=== PATIENT | female | born 1980 | race Caucasian/White ===

== ENCOUNTER 2017-05-17 18:29 | Emergency (ER) | payer MEDICAID ==
[~2017-05-17] VITALS: Ht 160 cm; Wt 93.0 kg
[~2017-05-17 18:29] MED LIST: ASPIRIN 81MG TA81 MG PO; CARVEDILOL6.25 MG PO; COREG 6.25MG6.25 MG PO; ETODOLAC400 MG PO; FIORICET 325 MG1 TAB PO; FLEXERIL10 MG PO; FUROSEMIDE 20MG20 MG FT; GABAPENTIN300 MG PO; HYDROCHLOROTH12.5 M1 PO; IBU-8800 MG PO; KLOR-CON M2020 MEQ PO; LEVOTHYROXINE0.05 M3 NG; LIPITOR20 MG PO; LIPITOR80 M1 PO; LORTAB 5/500 501 TAB PO; MOTRIN600 MG PO; NEURONTIN600 MG PO; NORCO 325 MG-101 TAB PO; PAXIL20 M1 PO; PRILOSEC20 M1 PO; PRILOSEC40 MG PO; SYNTHROID 0.00.05 MG PO; ZANTAC 150150 MG PO
--- NOTE | 2017-05-17 18:49 | Emergency Room Report ---
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 N Clinical Suspician of Infection? N Mental Status: 1 - Regular (Normal Baseline) Sepsis Risk:Low Sepsis Risk Have you (or family members/close friends) recently traveled outside the [place]? N If Yes, where/when: Have you had exposure to infectious disease within the past month? TB? Other? Specify: Comment Patient complains of RIGHT upper quadrant pain that began yesterday. Pain radiates around her RIGHT side. It is been constant. She has felt flushed and chilled, but no documented fevers at home. She did see her PCP today and was told she had a temperature of 99.6. She says that she has been having gallbladder attacks for 2 years. She has been evaluated previously and was told that she did not have stones. She has never had an attack that lasted this long. She has nausea, but no vomiting. No diarrhea. No urinary symptoms. She took ibuprofen about 1 PM. Her physician's appointment was at 4:45 PM. She says that her primary care provider told her today that she had a positive [place] sign and that she needed to come to the emergency room because she might need IV antibiotics. The patient was seen here in October, 10/15/16, for RIGHT upper quadrant pain and had a CT scan that showed a contracted gallbladder. Outpatient gallbladder ultrasound was recommended. She says that she saw her primary care provider the next day and was told that they would schedule this test, but she says she never got a call about it and therefore has never had it done. ALLERGIES Coded Allergies: penicillin G (Mild, 05/17/17) Uncoded Allergies: DOXCYCLINE (I-ITCHING 11/22/15) Home Medications Active Scripts Gabapentin (Neurontin) 600 MG PO QHS #30 TAB Ref 2 Prov: 11/22/15 Hydrochlorothiazide (Hydrochlorothiazide 12.5MG) 12.5 MG PO DAILY #30 CAP Ref 1 Prov: 11/22/15 ATORVASTATIN CALCIUM (Lipitor 80MG) 80 MG PO QHS #30 TAB Ref 1 Prov: 11/22/15 LEVOTHYROXINE SOD (Levothyroxine 0.05MG) 0.05 MG NG DAILY #30 TAB Ref 1 Prov: 11/22/15 Carvedilol (Coreg 6.25MG) 6.25 MG PO BID #60 TAB Ref 1 Prov: 11/22/15 Ranitidine Hcl (Zantac) 150 MG PO BID #60 TAB Ref 1 Prov: 11/22/15 OMEPRAZOLE MAGNESIUM (Prilosec 20MG) 20 MG PO DAILY #30 TCP Ref 1 Prov: 11/22/15 Reported Medications Levothyroxine Sodium (Synthroid 0.05MG) 0.05 MG PO DAILY Carvedilol (Carvedilol 6.25MG) 6.25 MG PO BID Atorvastatin Calcium (Lipitor 20MG) 80 MG PO DAILY Furosemide (Furosemide) 20 MG FT DAILY ASPIRIN (Aspirin) 81 MG PO DAILY Omeprazole (Prilosec 40mg Cap) 40 MG PO DAILY Hydrochlorothiazide (Hydrochlorothiazide 12.5MG) 12.5 MG PO DAILY PAROXETINE HCL (Paxil) 20 MG PO QHS HYDROCODONE/ACETAMINOPHEN ([place] 10-325 Tablet) 1 TAB PO Q4HP PRN BACK Gabapentin (Gabapentin 300MG) 600 MG PO QHS Ranitidine Hcl (Zantac) 150 MG PO BID History Medical History General CAD? No Angina: No CO: Yes Hypertension? Yes Hyperlipidemia? Yes CHF? No DVT? No PE? No COPD? No Asthma? No Anemia? No GERD? No Gastric ulcers? No GI Bleed? No Hernia? No Thyroid Problems? No Hypothyroidism? Yes CVA? No Seizures? No Diabetes? No Renal Insuffiency? No End Stage Renal Disease? No UTI? No Stones? No BPH? No GB Disease: Yes Nephritic Syndrome? No Asplenia? No Hepatitis? No Sickle Cell Disease? No Arthritis? No Migraines? Yes Cataracts? No Glaucoma? No MRSA? No HIV? No TB? No Anxiety? No Depression? No Cancer? No More? No Immunization Hx Ped.Immunizations UTD Yes DT/Tetanus 5-10 YRS Flu NEVER Pneumonia NEVER Surgical Hx Previous Surgery?Y Tonsils TUBAL LEFT BREAST BIOPSY LEFT KNEE [employer] Hx LMP N/A Family History Family Hx Diabetes Yes CAD Yes Hypertension Yes Hyperlipidemia Yes Cancer Yes TB No Social History Smoking Hx Smoker: Current Every Day Smoker Tobacco: Yes Type Cigarettes Packs/day < 1 Pack Alcohol Alcohol: No Additionial History Additional History Negative gallbladder ultrasound and HIDA scan in 2011 at this facility. Review of Systems All Other Systems Reviewed and Negative Constitutional chills Gastrointestinal abdominal pain, denies diarrhea, nausea, denies vomiting Genitourinary denies: dysuria, hematuria. Physical Exam Vital Signs Vital Signs Date Time Temp Pulse Resp B/P Pulse O2 O2 Flow FiO2 Ox Delivery Rate 05/17 1953 98.1 82 20 127/65 100 05/17 1922 20 05/17 1919 20 05/17 183 98.4 112 18 158/84 98 General Appearance no apparent distress Eye Exam - bilateral eye normal exam, bilateral eye PERRL, bilateral eye EOMI Ear, Nose, Throat hearing grossly normal, normal ENT inspection Neck normal inspection, non-tender, supple, full range of motion Respiratory Status Yes: trachea midline, chest symmetrical. No: respiratory distress. Lung Sounds bilateral: normal breath sounds, lungs clear. Cardiovascular normal exam, regular rate/rhythm, no peripheral edema, no gallop, no JVD, no murmur, no rub, normal peripheral pulses Gastrointestinal normal bowel sounds, normal exam, non tender, soft, no organomegaly, no guarding, no rebound, tenderness (RIGHT upper quadrant) Back CVA tenderness (R) (Mild) Extremities normal inspection Neurologic alert, oriented x 3 Mental status normal mood/affect Skin intact, normal color, warm/dry Medical Decision Making LABS/Meds/Orders Pt receiving controlled substance in ED? Yes Comment [phone] rxs. last rx gabapentin on 05/13/17. Results/Orders Laboratory Tests 05/17/17 1845: Sodium 139, Potassium 3.5, Chloride 102, Carbon Dioxide 27, BUN 6 L, Creatinine 0.9, Estimated Creat Clear 124, Estimated GFR (MDRD) 70, Glucose 101, Calcium 9.2, Total Bilirubin 0.5, AST 19, ALT 23, Alkaline Phosphatase 132 H, Total Protein 7.7, Albumin 3.9, Globulin 3.8 H, Albumin/Globulin Ratio 1.0 L, Amylase 46, Lipase 171, TSH 3.19, Free T4 Index 6.8, Thyroxine (T4) 7.8, T3 Uptake 35, WBC 11.0 H, RBC 4.49, Hgb 14.1, Hct 40.9, MCV 91.0, RDW 13.0, Plt Count 256, MPV 7.6, Gran % 52.7, Gran # 5.8, Lymphocytes % 38.8, Monocytes % 4.8 , Eosinophils % 3.0, Basophils % 0.6, Lymphocytes # 4.3, Monocytes # 0.5, Eosinophils # 0.3, Basophils # 0.1, PUBS MCHC 34.5, MCH 31.4 H 05/17/171834: Urine Color YELLOW, Urine Appearance CLEAR, Urine pH 6.0, Ur Specific [place] <= 1.005, Urine Protein NEGATIVE, Urine Ketones NEGATIVE, Urine Blood NEGATIVE, Urine Nitrate NEGATIVE, Urine Bilirubin NEGATIVE, Urine Urobilinogen 0.2, Ur Leukocyte Esterase 1+ H, Urine Glucose NEGATIVE Current Medication Orders Sig/Wilbert Start time Last Medication Dose Route Stop Time Status Admin Levofloxacin/Dextrose 150 ML ONCE ONE 05/17 2015 CKDr IV 05/17 2144 Morphine Sulfate 0 .STK-MED ONE 05/17 1919 DC .ROUTE Sodium Chloride 1,000 ML .STK-MED ONE 05/17 1919 DC IV Ketorolac 30 MG ONCE ONE 05/17 1915 DC 05/17 Tromethamine IV 05/17 Morphine Sulfate 4 MG ONCE ONE 05/17 1915 DC 05/17 IV 05/17 Ondansetron HCl 4 MG ONCE ONE 05/17 1915 DC 05/17 IV 05/17 Sodium Chloride 1,000 ML .Q1H1M 05/17 1915 AC 05/17 IV 05/17 Ondansetron HCl 0 .STK-MED ONE 05/17 1910 DC .ROUTE Ketorolac 0 .STK-MED ONE 05/17 1909 DC Tromethamine .ROUTE Sodium Chloride 10 ML PRN PRN 05/17 1845 AC IV 05/18 1841 Orders Procedure Date/time Status DIET-NOTHING BY MOUTH 05/[address] ABD & PELVIS W/O CONTRAST 05/[address] ABD/PELVIS REQ 05/17 1842 Complete IV SALINE LOCK 05/17 1842 Active THYROID PANEL 2 (WITH TSH) 05/17 1842 Complete LIPASE 05/17 1842 Complete CBC WITH AUTO DIFF 05/17 1842 Complete CHEM 12 PROFILE 05/17 1842 Complete AMYLASE 05/17 1842 Complete URINALYSIS/COMPLETE 05/17 1837 Complete XRAY/CT/US XRAY/CT/US CT abdomen, pelvis Comment CT scan interpreted by [facility] radiologist. Faxed report received and reviewed: No acute findings Departure Departure Disposition DC Home or Self Care(routine) Clinical Impression Primary Impression: Right upper quadrant pain Secondary Impressions: UTI (urinary tract infection) Qualifiers: Urinary tract infection type: site unspecified Hematuria presence: without hematuria Qualified Code: N39.0 - Urinary tract infection, site not specified Condition STABLE Patient Instructions DI for Abdominal Pain-Adult, DI for Urinary Tract Infection (UTI) Additional Instructions Ibuprofen or Tylenol for pain and fever. Call your primary care provider tomorrow to arrange follow-up for your abdominal pain, gallbladder ultrasound. Follow-up urine culture results from your primary care provider in 2-3 days. Additional instructions for ABDOMINAL PAIN: See your physician as soon as possible for further evaluation. Return immediately if worsening abdominal pain, vomiting, shortness of breath, fever, vomiting of blood or abdominal distention. Additional instructions for URINARY TRACT INFECTION: See your physician as soon as possible for further evaluation. Return immediately if you have an uncontrollable fever greater than 102 degrees, severe back or abdominal pain, inability to urinate, or repetetive vomiting. Prescriptions Current Visit Scripts Ciprofloxacin HCl (Cipro 500MG TAB) 500 MG PO BID #20 TAB ED Critical Care Critical Care No at 2006
[2017-05-17 18:55] LABS: HEMOGLOBIN 14.1 g/dL (12.2-16.2); LYMPH # 4.3 K/mm3 (0.7-4.5); LYMPH % 38.8 % (10-50.0)
--- OUTSIDE RECORDS SUMMARY | 2017-05-17 18:57 | External Medical Summary Rpt | CCD ---
Author Author , VENKATA HASTINGS Address Unknown Phone [email or web address] Purpose Continuity of Care Document - 07-16-2016 through 2016 Problems Code Diagnosis DOS Provider Status R10.11 RIGHT UPPER QUADRANT PAIN S83.207A UNSP TEAR OF UNSP MENISCUS, CURRENT INJURY, LEFT KNEE, INIT Results Labs Lab Lab Date Result Refere Interp Status Commen Order Detail nces retati t Range on CBC W Diff pnl,unspecified Bld (08-10-2016 11:01) WBC 13.89 3.50-10 complet nRBC 017 10*3/mm .80 ed cor # 11:01 3 Bld RBC # 08-10-2 4.10 3.89-5. complet Bld 017 10*6/mm 14 ed Auto 11:01 3 Hgb 12.9 11.5-15 complet Bld-mCn 017 g/dL .5 ed c 11:01 Hct VFr 39.5 % 34.5-44 complet Bld 017 .0 ed Auto 11:01 MCV RBC 96.3 fL 80.0-99 complet Auto 017 .0 ed 11:01 MCH RBC 31.5 pg 27.0-31 complet Qn 017 .0 ed Auto 11:01 MCHC 32.7 32.0-36 complet RBC 017 g/dL .0 ed Auto-mC 11:01 nc RDW RBC 15.9 % 11.3-14 complet 017 .5 ed Auto-Rt 11:01 o RDW RBC 56.1 fl 37.0-54 complet Auto 017 .0 ed 11:01 PMV Bld 9.4 fL 6.0-12. complet Auto 017 0 ed 11:01 Platele 353 150-450 complet t # Bld 017 10*3/mm ed Auto 11:01 3 Neutrop 08-10-2 57.1 % 41.0-71 complet hils 017 .0 ed NFr Bld 11:01 Auto Lymphoc 08-10-2 29.9 % 24.0-44 complet ytes 017 .0 ed NFr Bld 11:01 Auto Monocyt 08-10-2 6.6 % 0.0-12. complet es NFr 017 0 ed Bld 11:01 Auto Eosinop 08-10-2 5.3 % 0.0-3.0 complet hil NFr 017 ed Bld 11:01 Auto Basophi 08-10-2 0.3 % 0.0-1.0 complet ls NFr 017 ed Bld 11:01 Auto Imm 0.8 % 0.0-0.6 complet Granulo 017 ed cytes 11:01 NFr Bld Neutrop 7.92 1.50-8. complet hils # 017 10*3/mm 30 ed Bld 11:01 3 Auto Lymphoc 08-10-2 4.16 0.60-4. complet ytes # 017 10*3/mm 80 ed Bld 11:01 3 Auto Monocyt 08-10-2 0.92 0.00-1. complet es # 017 10*3/mm 00 ed Bld 11:01 3 Auto Eosinop 08-10-2 0.74 0.10-0. complet hil # 017 10*3/mm 30 ed Bld 11:01 3 Auto Basophi 08-10-2 0.04 0.00-0. complet ls # 017 10*3/mm 20 ed Bld 11:01 3 Auto Imm 08-10-2 0.11 0.00-0. complet Granulo 017 10*3/mm 03 ed cytes # 11:01 3 Bld Cryptoc Ag Ser Ql (08-10-2016 11:01) Cryptoc [id number] Negativ complet Ag CSF 017 09 e ed Ql 11:01 Negativ e SCT Bas Metab 2000 Pnl SerPl (07-27-2016 07:06) Glucose 97 70-130 complet BldC 017 mg/dL ed Glucomt 07:06 r-mCnc Diff pnl,unspecified Bld (07-27-2016 05:23) WBC [id number] Normal complet morph 017 01 ed Bld 05:23 Normal result SCT Plat [id number] Normal complet morph 017 01 ed Bld 05:23 Normal result SCT Neutrop 67.0 % 41.0-71 complet hils 017 .0 ed NFr Bld 05:23 Manual Lymphoc 07-27-2 18.0 % 24.0-44 complet ytes 017 .0 ed NFr Bld 05:23 Manual Lymphoc 07-27-2 7.0 % 0.0-12. complet ytes 017 0 ed NFr Bld 05:23 Manual Eosinop 07-27-2 2.0 % 0.0-3.0 complet hil NFr 017 ed Bld 05:23 Manual Basophi 2 0.0 % 0.0-1.0 complet ls NFr 017 ed Bld 05:23 Auto Neuts 2 3.0 % 0.0-5.0 complet Band 017 ed NFr Bld 05:23 Manual Metamye 07-27-2 1.0 % 0.0-0.0 complet locytes 017 ed NFr 05:23 Bld Manual Myelocy 07-27-2 2.0 % 0.0-0.0 complet dev NFr 017 ed Bld 05:23 Manual Neutrop 07-27-2 6.87 1.50-8. complet hils # 017 10*3/mm 30 ed Bld 05:23 3 Auto Lymphoc 07-27-2 1.77 0.60-4. complet ytes # 017 10*3/mm 80 ed Bld 05:23 3 Manual Monocyt 07-27-2 0.69 0.00-1. complet es # 017 10*3/mm 00 ed Bld 05:23 3 Auto Eosinop 07-27-2 0.20 0.10-0. complet hil # 017 10*3/mm 30 ed Bld 05:23 3 Manual Basophi 18-2 0.00 0.00-0. complet ls # 017 10*3/mm 20 ed Bld 05:23 3 Manual Polychr 07-27-2 [id number] None complet omasia 017 04 Seen ed Bld Ql 05:23 Small Smear SCT CBC W Diff pnl,unspecified Bld (07-27-2016 05:23) WBC 07-27- 9.82 3.50-10 complet nRBC 017 10*3/mm .80 ed cor # 05:23 3 Bld RBC # 18-2 3.59 3.89-5. complet Bld 017 10*6/mm 14 ed Auto 05:23 3 Hgb 11.2 11.5-15 complet Bld-mCn 017 g/dL .5 ed c 05:23 Hct VFr 33.3 % 34.5-44 complet Bld 017 .0 ed Auto 05:23 MCV RBC 92.8 fL 80.0-99 complet Auto 017 .0 ed 05:23 MCH RBC 31.2 pg 27.0-31 complet Qn 017 .0 ed Auto 05:23 MCHC 33.6 32.0-36 complet RBC 017 g/dL .0 ed Auto-mC 05:23 nc RDW RBC 07-27- 14.9 % 11.3-14 complet 017 .5 ed Auto-Rt 05:23 o RDW RBC 50.3 fl 37.0-54 complet Auto 017 .0 ed 05:23 PMV Bld 10.6 fL 6.0-12. complet Auto 017 0 ed 05:23 Platele 371 150-450 complet t # Bld 017 10*3/mm ed Auto 05:23 3 Bas Metab 1999 Pnl SerPl (07-26-2016 21:18) Glucose 89 70-130 complet BldC 017 mg/dL ed Glucomt 21:18 r-[facility] Bas Metab 1999 Pnl SerPl (07-26-2016 16:33) Glucose 115 70-130 complet BldC 017 mg/dL ed Glucomt 16:33 r-[facility] Bas Metab 1999 Pnl SerPl (07-26-2016 11:30) Glucose 100 70-130 complet BldC 017 mg/dL ed Glucomt 11:30 r-[facility] Bas Metab 1999 Pnl SerPl (07-26-2016 07:36) Glucose 90 70-130 complet BldC 017 mg/dL ed Glucomt 07:36 r-nc Comp Metab 1998 Pnl SerPl (07-26-2016 05:18) ALP 124 U/L 25-100 complet SerPl-c 017 ed Cnc 05:18 Bilirub 0.7 0.3-1.2 complet 017 mg/dL ed SerPl-m 05:18 Cnc GFR/BSA 139 >60 complet .pred 017 mL/min/ ed SerPl 05:18 1.73 MDRD-Ar VRat Globuli 3.3 complet n Ur 017 gm/dL ed Elph-mC 05:18 nc Albumin 1.1 1.5-2.5 complet /Glob 017 g/dL ed SerPl 05:18 BUN/Cre 22.0 7.0-25. complet at 017 0 ed SerPl 05:18 Anion 7.0 3.0-11. complet Gap3 017 mmol/L 0 ed SerPl-s 05:18 Cnc Glucose 85 70-100 complet 017 mg/dL ed Bld-mCn 05:18 c BUN 11 9-23 complet Bld-mCn 017 mg/dL ed c 05:18 Creat 0.50 0.60-1. complet Bld-mCn 017 mg/dL 30 ed c 05:18 Sodium 137 132-146 complet Bld-sCn 017 mmol/L ed c 05:18 Potassi 3.7 3.5-5.5 complet um 017 mmol/L ed Bld-sCn 05:18 c Chlorid 102 99-109 complet e 017 mmol/L ed SerPl-s 05:18 Cnc CO2 28.0 20.0-31 complet SerPl-s 017 mmol/L .0 ed Cnc 05:18 Calcium 9.5 8.7-10. complet 017 mg/dL 4 ed XXX-sCn 05:18 c Prot 6.9 5.7-8.2 complet SerPl-m 017 g/dL ed Cnc 05:18 Albumin 3.60 3.20-4. complet 017 g/dL 80 ed SerPl-m 05:18 Cnc ALT 19 U/L 7-40 complet SerPl w 017 ed 05:18 P-5'-P- cCnc AST 29 U/L 0-33 complet SerPl-c 017 ed Cnc 05:18 CBC W Diff pnl,unspecified Bld (07-26-2016 05:18) WBC 10.11 3.50-10 complet nRBC 017 10*3/mm .80 ed cor # 05:18 3 Bld RBC # 3.43 3.89-5. complet Bld 017 10*6/mm 14 ed Auto 05:18 3 Hgb 10.6 11.5-15 complet Bld-mCn 017 g/dL .5 ed c 05:18 Hct VFr 31.7 % 34.5-44 complet Bld 017 .0 ed Auto 05:18 MCV RBC 92.4 fL 80.0-99 complet Auto 017 .0 ed 05:18 MCH RBC 30.9 pg 27.0-31 complet Qn 017 .0 ed Auto 05:18 MCHC 33.4 32.0-36 complet RBC 017 g/dL .0 ed Auto-mC 05:18 nc RDW RBC 15.0 % 11.3-14 complet 017 .5 ed Auto-Rt 05:18 o RDW RBC 50.7 fl 37.0-54 complet Auto 017 .0 ed 05:18 PMV Bld 10.8 fL 6.0-12. complet Auto 017 0 ed 05:18 Platele 321 150-450 complet t # Bld 017 10*3/mm ed Auto 05:18 3 Neutrop 67.0 % 41.0-71 complet hils 017 .0 ed NFr Bld 05:18 Auto Lymphoc 16.0 % 24.0-44 complet ytes 017 .0 ed NFr Bld 05:18 Auto Monocyt 9.3 % 0.0-12. complet es NFr 017 0 ed Bld 05:18 Auto Eosinop 01-17-2 2.8 % 0.0-3.0 complet hil NFr 017 ed Bld 05:18 Auto Basophi -17-2 0.8 % 0.0-1.0 complet ls NFr 017 ed Bld 05:18 Auto Imm -17-2 4.1 % 0.0-0.6 complet Granulo 017 ed cytes 05:18 NFr Bld Neutrop 17-2 6.78 1.50-8. complet hils # 017 10*3/mm 30 ed Bld 05:18 3 Auto Lymphoc 17-2 1.62 0.60-4. complet ytes # 017 10*3/mm 80 ed Bld 05:18 3 Auto Monocyt 17-2 0.94 0.00-1. complet es # 017 10*3/mm 00 ed Bld 05:18 3 Auto Eosinop 17-2 0.28 0.10-0. complet hil # 017 10*3/mm 30 ed Bld 05:18 3 Auto Basophi 17-2 0.08 0.00-0. complet ls # 017 10*3/mm 20 ed Bld 05:18 3 Auto Imm 17-2 0.41 0.00-0. complet Granulo 017 10*3/mm 03 ed cytes # 05:18 3 Bld Bas Metab 1999 Pnl SerPl (07-25-2016 20:58) Glucose 92 70-130 complet BldC 017 mg/dL ed Glucomt 20:58 r-mCnc Bas Metab 1999 Pnl SerPl (07-25-2016 18:11) Glucose 102 70-130 complet BldC 017 mg/dL ed Glucomt 18:11 r-mCnc Bas Metab 1999 Pnl SerPl (07-25-2016 11:38) Glucose 82 70-130 complet BldC 017 mg/dL ed Glucomt 11:38 r-mCnc ESR Bld Qn (07-25-2016 05:20) ESR Bld 68 0-20 complet Qn 017 mm/hr ed 05:20 CBC W Diff pnl,unspecified Bld (07-25-2016 05:20) WBC 12.59 3.50-10 complet nRBC 017 10*3/mm .80 ed cor # 05:20 3 Bld RBC # -16-2 3.42 3.89-5. complet Bld 017 10*6/mm 14 ed Auto 05:20 3 Hgb 16-2 10.3 11.5-15 complet Bld-mCn 017 g/dL .5 ed c 05:20 Hct VFr 31.5 % 34.5-44 complet Bld 017 .0 ed Auto 05:20 MCV RBC 92.1 fL 80.0-99 complet Auto 017 .0 ed 05:20 MCH RBC 30.1 pg 27.0-31 complet Qn 017 .0 ed Auto 05:20 MCHC 32.7 32.0-36 complet RBC 017 g/dL .0 ed Auto-mC 05:20 nc RDW RBC 14.9 % 11.3-14 complet 017 .5 ed Auto-Rt 05:20 o RDW RBC 49.6 fl 37.0-54 complet Auto 017 .0 ed 05:20 PMV Bld 11.1 fL 6.0-12. complet Auto 017 0 ed 05:20 Platele 272 150-450 complet t # Bld 017 10*3/mm ed Auto 05:20 3 Diff pnl,unspecified Bld (07-25-2016 05:20) Lymphoc 07-25-2 14.0 % 24.0-44 complet ytes 017 .0 ed NFr Bld 05:20 Manual Lymphoc 07-25- 5.0 % 0.0-12. complet ytes 017 0 ed NFr Bld 05:20 Manual Eosinop 07-25- 0.0 % 0.0-3.0 complet hil NFr 017 ed Bld 05:20 Manual Basophi 07-25-2 0.0 % 0.0-1.0 complet ls NFr 017 ed Bld 05:20 Auto Neuts 8.0 % 0.0-5.0 complet Band 017 ed NFr Bld 05:20 Manual Metamye 07-25- 3.0 % 0.0-0.0 complet locytes 017 ed NFr 05:20 Bld Manual Neutrop 9.82 1.50-8. complet hils # 017 10*3/mm 30 ed Bld 05:20 3 Auto Lymphoc 1.76 0.60-4. complet ytes # 017 10*3/mm 80 ed Bld 05:20 3 Manual Monocyt 0.63 0.00-1. complet es # 017 10*3/mm 00 ed Bld 05:20 3 Auto Eosinop 0.00 0.10-0. complet hil # 017 10*3/mm 30 ed Bld 05:20 3 Manual Basophi 0.00 0.00-0. complet ls # 017 10*3/mm 20 ed Bld 05:20 3 Manual RBC [id number] Normal complet morph 017 01 ed Bld 05:20 Normal result SCT WBC [id number] Normal complet morph 017 01 ed Bld 05:20 Normal result SCT Plat [id number] Normal complet morph 017 01 ed Bld 05:20 Normal result SCT Neutrop 70.0 % 41.0-71 complet hils 017 .0 ed NFr Bld 05:20 Manual CRP SerPl-mCnc (07-25-2016 05:20) CRP 94.30 0.00-10 complet SerPl-m 017 mg/dL .00 ed Cnc 05:20 Comp Metab 1998 Pnl SerPl (07-25-2016 05:20) Glucose 83 70-100 complet 017 mg/dL ed Bld-mCn 05:20 c Creat 0.50 0.60-1. complet Bld-mCn 017 mg/dL 30 ed c 05:20 Sodium 140 132-146 complet Bld-sCn 017 mmol/L ed c 05:20 Potassi 3.8 3.5-5.5 complet um 017 mmol/L ed Bld-sCn 05:20 c Chlorid 101 99-109 complet e 017 mmol/L ed SerPl-s 05:20 Cnc CO2 28.0 20.0-31 complet SerPl-s 017 mmol/L .0 ed Cnc 05:20 Calcium 9.1 8.7-10. complet 017 mg/dL 4 ed XXX-sCn 05:20 c Prot 6.4 5.7-8.2 complet SerPl-m 017 g/dL ed Cnc 05:20 Albumin 3.50 3.20-4. complet 017 g/dL 80 ed SerPl-m 05:20 Cnc ALT 20 U/L 7-40 complet SerPl w 017 ed 05:20 P-5'-P- cCnc AST 29 U/L 0-33 complet SerPl-c 017 ed Cnc 05:20 ALP 115 U/L 25-100 complet SerPl-c 017 ed Cnc 05:20 Bilirub 0.7 0.3-1.2 complet 017 mg/dL ed SerPl-m 05:20 Cnc GFR/BSA 139 >60 complet .pred 017 mL/min/ ed SerPl 05:20 1.73 MDRD-Ar VRat Globuli 2.9 complet n Ur 017 gm/dL ed Elph-mC 05:20 nc Albumin 1.2 1.5-2.5 complet /Glob 017 g/dL ed SerPl 05:20 BUN/Cre 22.0 7.0-25. complet at 017 0 ed SerPl 05:20 Anion 11.0 3.0-11. complet Gap3 017 mmol/L 0 ed SerPl-s 05:20 Cnc BUN 11 9-23 complet Bld-mCn 017 mg/dL ed c 05:20 Bas Metab 1999 Pnl SerPl (07-24-2016 20:39) Glucose 97 70-130 complet BldC 017 mg/dL ed Glucomt 20:39 r-nc Bas Metab 1999 Pnl SerPl (07-24-2016 16:59) Glucose 89 70-130 complet BldC 017 mg/dL ed Glucomt 16:59 r-nc Bas Metab 1999 Pnl SerPl (07-24-2016 11:44) Glucose 88 70-130 complet BldC 017 mg/dL ed Glucomt 11:44 r-mCnc Bas Metab 1999 Pnl SerPl (07-24-2016 07:24) Glucose 82 70-130 complet BldC 017 mg/dL ed Glucomt 07:24 r-mCnc Bas Metab 1999 Pnl SerPl (07-23-2016 20:55) Glucose 104 70-130 complet BldC 017 mg/dL ed Glucomt 20:55 r-mCnc Bas Metab 1999 Pnl SerPl (07-23-2016 17:48) Glucose 96 70-130 complet BldC 017 mg/dL ed Glucomt 17:48 r-mCnc Bas Metab 1999 Pnl SerPl (07-23-2016 11:35) Glucose 112 70-130 complet BldC 017 mg/dL ed Glucomt 11:35 r-mCnc Bas Metab 1999 Pnl SerPl (07-23-2016 07:34) Glucose 102 70-130 complet BldC 017 mg/dL ed Glucomt 07:34 r-mCnc CBC W Diff pnl,unspecified Bld (07-23-2016 03:50) Hgb 10.4 11.5-15 complet Bld-mCn 017 g/dL .5 ed c 03:50 Hct VFr 30.7 % 34.5-44 complet Bld 017 .0 ed Auto 03:50 MCV RBC 92.2 fL 80.0-99 complet Auto 017 .0 ed 03:50 MCH RBC 31.2 pg 27.0-31 complet Qn 017 .0 ed Auto 03:50 MCHC 33.9 32.0-36 complet RBC 017 g/dL .0 ed Auto-mC 03:50 nc RDW RBC 14.9 % 11.3-14 complet 017 .5 ed Auto-Rt 03:50 o RDW RBC 50.6 fl 37.0-54 complet Auto 017 .0 ed 03:50 PMV Bld 11.8 fL 6.0-12. complet Auto 017 0 ed 03:50 Platele 01-14-2 202 150-450 complet t # Bld 017 10*3/mm ed Auto 03:50 3 Neutrop 14-2 58.1 % 41.0-71 complet hils 017 .0 ed NFr Bld 03:50 Auto Lymphoc -14-2 23.5 % 24.0-44 complet ytes 017 .0 ed NFr Bld 03:50 Auto Monocyt 14-2 7.5 % 0.0-12. complet es NFr 017 0 ed Bld 03:50 Auto Eosinop 14-2 2.5 % 0.0-3.0 complet hil NFr 017 ed Bld 03:50 Auto Basophi 14-2 0.6 % 0.0-1.0 complet ls NFr 017 ed Bld 03:50 Auto Imm 07-23-2 7.8 % 0.0-0.6 complet Granulo 017 ed cytes 03:50 NFr Bld Neutrop 07-23-2 14.41 1.50-8. complet hils # 017 10*3/mm 30 ed Bld 03:50 3 Auto Lymphoc 14-2 5.82 0.60-4. complet ytes # 017 10*3/mm 80 ed Bld 03:50 3 Auto Monocyt 14-2 1.87 0.00-1. complet es # 017 10*3/mm 00 ed Bld 03:50 3 Auto Eosinop 14-2 0.61 0.10-0. complet hil # 017 10*3/mm 30 ed Bld 03:50 3 Auto Basophi 14-2 0.14 0.00-0. complet ls # 017 10*3/mm 20 ed Bld 03:50 3 Auto Imm 14-2 1.94 0.00-0. complet Granulo 017 10*3/mm 03 ed cytes # 03:50 3 Bld WBC 14-2 24.79 3.50-10 complet nRBC 017 10*3/mm .80 ed cor # 03:50 3 Bld RBC # -14-2 3.33 3.89-5. complet Bld 017 10*6/mm 14 ed Auto 03:50 3 Renal Func 2000 Pnl SerPl (07-23-2016 03:50) Glucose 07-23-2 82 70-100 complet 017 mg/dL ed Bld-mCn 03:50 c BUN 8 mg/dL 9-23 complet Bld-mCn 017 ed c 03:50 Creat 0.50 0.60-1. complet Bld-mCn 017 mg/dL 30 ed c 03:50 Sodium 136 132-146 complet Bld-sCn 017 mmol/L ed c 03:50 Potassi 3.7 3.5-5.5 complet um 017 mmol/L ed Bld-sCn 03:50 c Chlorid 102 99-109 complet e 017 mmol/L ed SerPl-s 03:50 Cnc CO2 27.0 20.0-31 complet SerPl-s 017 mmol/L .0 ed Cnc 03:50 Calcium 9.0 8.7-10. complet 017 mg/dL 4 ed XXX-sCn 03:50 c Albumin 3.00 3.20-4. complet 017 g/dL 80 ed SerPl-m 03:50 Cnc Phospha 3.2 2.4-5.1 complet te 017 mg/dL ed SerPl-m 03:50 Cnc Anion 7.0 3.0-11. complet Gap3 017 mmol/L 0 ed SerPl-s 03:50 Cnc BUN/Cre 16.0 7.0-25. complet at 017 0 ed SerPl 03:50 GFR/BSA 139 >60 complet .pred 017 mL/min/ ed SerPl 03:50 1.73 MDRD-Ar VRat BNP SerPl-mCnc (07-23-2016 03:50) BNP 231.0 0.0-100 complet SerPl-m 017 pg/mL .0 ed Cnc 03:50 Diff pnl,unspecified Bld (07-23-2016 03:50) Neutrop 62.0 % 41.0-71 complet hils 017 .0 ed NFr Bld 03:50 Manual Lymphoc 16.0 % 24.0-44 complet ytes 017 .0 ed NFr Bld 03:50 Manual Lymphoc 6.0 % 0.0-12. complet ytes 017 0 ed NFr Bld 03:50 Manual Eosinop 1.0 % 0.0-3.0 complet hil NFr 017 ed Bld 03:50 Manual Basophi 0.0 % 0.0-1.0 complet ls NFr 017 ed Bld 03:50 Auto Neuts 4.0 % 0.0-5.0 complet Band 017 ed NFr Bld 03:50 Manual Metamye 1.0 % 0.0-0.0 complet locytes 017 ed NFr 03:50 Bld Manual Myelocy 2.0 % 0.0-0.0 complet dev NFr 017 ed Bld 03:50 Manual Variant 8.0 % 0.0-5.0 complet Lymphs 017 ed NFr 03:50 Bld Manual Neutrop 16.36 1.50-8. complet hils # 017 10*3/mm 30 ed Bld 03:50 3 Auto Lymphoc 3.97 0.60-4. complet ytes # 017 10*3/mm 80 ed Bld 03:50 3 Manual Monocyt 1.49 0.00-1. complet es # 017 10*3/mm 00 ed Bld 03:50 3 Auto Eosinop 0.25 0.10-0. complet hil # 017 10*3/mm 30 ed Bld 03:50 3 Manual Basophi 0.00 0.00-0. complet ls # 017 10*3/mm 20 ed Bld 03:50 3 Manual Microcy [id number] None complet dev Bld 017 04 Seen ed Ql 03:50 Small SCT WBC [id number] Normal complet morph 017 01 ed Bld 03:50 Normal result SCT Plat [id number] Normal complet morph 017 01 ed Bld 03:50 Normal result SCT Bas Metab 1999 Pnl SerPl (07-22-2016 20:34) Glucose 94 70-130 complet BldC 017 mg/dL ed Glucomt 20:34 r-mCnc Bas Metab 1999 Pnl SerPl (07-22-2016 16:37) Glucose 103 70-130 complet BldC 017 mg/dL ed Glucomt 16:37 r-mCnc Bas Metab 1999 Pnl SerPl (07-22-2016 11:36) Glucose 96 70-130 complet BldC 017 mg/dL ed Glucomt 11:36 r-mCnc C dif Tox gens Stl Ql PCR (07-22-2016 10:35) C dif [id number] Negativ complet Tox 017 00 Not e ed gens 10:35 detecte Stl Ql d SCT PCR Bas Metab 1999 Pnl SerPl (07-22-2016 07:27) Glucose 91 70-130 complet BldC 017 mg/dL ed Glucomt 07:27 r-mCnc Mg Ionized SerPl-mCnc (07-22-2016 06:03) Magnesi 1.6 1.3-2.7 complet um 017 mg/dL ed SerPl-m 06:03 Cnc Renal Func 1999 Pnl SerPl (07-22-2016 06:03) Glucose 94 70-100 complet 017 mg/dL ed Bld-mCn 06:03 c BUN 8 mg/dL 9-23 complet Bld-mCn 017 ed c 06:03 Creat 0.40 0.60-1. complet Bld-mCn 017 mg/dL 30 ed c 06:03 Sodium 136 132-146 complet Bld-sCn 017 mmol/L ed c 06:03 Potassi 3.8 3.5-5.5 complet um 017 mmol/L ed Bld-sCn 06:03 c Chlorid 101 99-109 complet e 017 mmol/L ed SerPl-s 06:03 Cnc CO2 31.0 20.0-31 complet SerPl-s 017 mmol/L .0 ed Cnc 06:03 Calcium 8.9 8.7-10. complet 017 mg/dL 4 ed XXX-sCn 06:03 c Albumin 3.00 3.20-4. complet 017 g/dL 80 ed SerPl-m 06:03 Cnc Phospha 2.7 2.4-5.1 complet te 017 mg/dL ed SerPl-m 06:03 Cnc Anion 4.0 3.0-11. complet Gap3 017 mmol/L 0 ed SerPl-s 06:03 Cnc BUN/Cre 20.0 7.0-25. complet at 017 0 ed SerPl 06:03 GFR/BSA > 150 >60 complet .pred 017 mL/min/ ed SerPl 06:03 1.73 MDRD-Ar VRat Vancomycin Trough SerPl-mCnc (07-22-2016 06:03) Vancomy 11.90 10.00-2 complet rose mary 017 mcg/mL 0.00 ed Trough 06:03 SerPl-m Cnc CBC W Diff pnl,unspecified Bld (07-22-2016 06:03) WBC 27.44 3.50-10 complet nRBC 017 10*3/mm .80 ed cor # 06:03 3 Bld RBC # 3.37 3.89-5. complet Bld 017 10*6/mm 14 ed Auto 06:03 3 Hgb 10.2 11.5-15 complet Bld-mCn 017 g/dL .5 ed c 06:03 Hct VFr 30.9 % 34.5-44 complet Bld 017 .0 ed Auto 06:03 MCV RBC 91.7 fL 80.0-99 complet Auto 017 .0 ed 06:03 MCH RBC 30.3 pg 27.0-31 complet Qn 017 .0 ed Auto 06:03 MCHC 33.0 32.0-36 complet RBC 017 g/dL .0 ed Auto-mC 06:03 nc RDW RBC 14.8 % 11.3-14 complet 017 .5 ed Auto-Rt 06:03 o RDW RBC 49.7 fl 37.0-54 complet Auto 017 .0 ed 06:03 PMV Bld 11.6 fL 6.0-12. complet Auto 017 0 ed 06:03 Platele 156 150-450 complet t # Bld 017 10*3/mm ed Auto 06:03 3 Diff pnl,unspecified Bld (07-22-2016 06:03) Neutrop 63.0 % 41.0-71 complet hils 017 .0 ed NFr Bld 06:03 Manual Lymphoc 13.0 % 24.0-44 complet ytes 017 .0 ed NFr Bld 06:03 Manual Lymphoc 8.0 % 0.0-12. complet ytes 017 0 ed NFr Bld 06:03 Manual Eosinop 2.0 % 0.0-3.0 complet hil NFr 017 ed Bld 06:03 Manual Basophi 0.0 % 0.0-1.0 complet ls NFr 017 ed Bld 06:03 Auto Neuts 8.0 % 0.0-5.0 complet Band 017 ed NFr Bld 06:03 Manual Metamye 2.0 % 0.0-0.0 complet locytes 017 ed NFr 06:03 Bld Manual Variant 4.0 % 0.0-5.0 complet Lymphs 017 ed NFr 06:03 Bld Manual Neutrop 19.48 1.50-8. complet hils # 017 10*3/mm 30 ed Bld 06:03 3 Auto Lymphoc 3.57 0.60-4. complet ytes # 017 10*3/mm 80 ed Bld 06:03 3 Manual Monocyt 2.20 0.00-1. complet es # 017 10*3/mm 00 ed Bld 06:03 3 Auto Eosinop 0.55 0.10-0. complet hil # 017 10*3/mm 30 ed Bld 06:03 3 Manual Basophi 0.00 0.00-0. complet ls # 017 10*3/mm 20 ed Bld 06:03 3 Manual Polychr [id number] None complet omasia 017 04 Seen ed Bld Ql 06:03 Small Smear SCT Plat [id number] Normal complet morph 017 01 ed Bld 06:03 Normal result SCT Bas Metab 1999 Pnl SerPl (07-21-2016 20:08) Glucose 95 70-130 complet BldC 017 mg/dL ed Glucomt 20:08 r-mCnc Potassium SerPl-sCnc (07-21-2016 16:45) Potassi 4.0 3.5-5.5 complet um 017 mmol/L ed Bld-sCn 16:45 c Bas Metab 1999 Pnl SerPl (07-21-2016 16:43) Glucose 91 70-130 complet BldC 017 mg/dL ed Glucomt 16:43 r-mCnc Bas Metab 1999 Pnl SerPl (07-21-2016 11:47) Glucose 89 70-130 complet BldC 017 mg/dL ed Glucomt 11:47 r-mCnc Bas Metab 1999 Pnl SerPl (07-21-2016 07:25) Glucose 94 70-130 complet BldC 017 mg/dL ed Glucomt 07:25 r-nc CK SerPl-cCnc (07-21-2016 04:05) CK 108 U/L 26-174 complet SerPl-c 017 ed Cnc 04:05 Diff pnl,unspecified Bld (07-21-2016 04:05) Plat [id number] Normal complet morph 017 01 ed Bld 04:05 Normal result SCT WBC [id number] Normal complet morph 017 01 ed Bld 04:05 Normal result SCT RBC [id number] Normal complet morph 017 01 ed Bld 04:05 Normal result SCT Basophi 0.00 0.00-0. complet ls # 017 10*3/mm 20 ed Bld 04:05 3 Manual Eosinop 0.69 0.10-0. complet hil # 017 10*3/mm 30 ed Bld 04:05 3 Manual Monocyt 1.16 0.00-1. complet es # 017 10*3/mm 00 ed Bld 04:05 3 Auto Lymphoc 2.32 0.60-4. complet ytes # 017 10*3/mm 80 ed Bld 04:05 3 Manual Neutrop 18.06 1.50-8. complet hils # 017 10*3/mm 30 ed Bld 04:05 3 Auto Variant 3.0 % 0.0-5.0 complet Lymphs 017 ed NFr 04:05 Bld Manual Promyel 0.0 % 0.0-0.0 complet ocytes 017 ed NFr Bld 04:05 Manual Myelocy 0.0 % 0.0-0.0 complet dev NFr 017 ed Bld 04:05 Manual Metamye 1.0 % 0.0-0.0 complet locytes 017 ed NFr 04:05 Bld Manual Neuts 9.0 % 0.0-5.0 complet Band 017 ed NFr Bld 04:05 Manual Basophi 0.0 % 0.0-1.0 complet ls NFr 017 ed Bld 04:05 Auto Eosinop 3.0 % 0.0-3.0 complet hil NFr 017 ed Bld 04:05 Manual Lymphoc 5.0 % 0.0-12. complet ytes 017 0 ed NFr Bld 04:05 Manual Lymphoc 10.0 % 24.0-44 complet ytes 017 .0 ed NFr Bld 04:05 Manual Neutrop 69.0 % 41.0-71 complet hils 017 .0 ed NFr Bld 04:05 Manual CBC W Diff pnl,unspecified Bld (07-21-2016 04:05) Platele 132 150-450 complet t # Bld 017 10*3/mm ed Auto 04:05 3 PMV Bld 11.4 fL 6.0-12. complet Auto 017 0 ed 04:05 RDW RBC 49.8 fl 37.0-54 complet Auto 017 .0 ed 04:05 RDW RBC 15.0 % 11.3-14 complet 017 .5 ed Auto-Rt 04:05 o MCHC 35.4 32.0-36 complet RBC 017 g/dL .0 ed Auto-mC 04:05 nc MCH RBC 32.5 pg 27.0-31 complet Qn 017 .0 ed Auto 04:05 MCV RBC 91.7 fL 80.0-99 complet Auto 017 .0 ed 04:05 Hct VFr 28.8 % 34.5-44 complet Bld 017 .0 ed Auto 04:05 Hgb 10.2 11.5-15 complet Bld-mCn 017 g/dL .5 ed c 04:05 RBC # 3.14 3.89-5. complet Bld 017 10*6/mm 14 ed Auto 04:05 3 WBC 23.16 3.50-10 complet nRBC 017 10*3/mm .80 ed cor # 04:05 3 Bld LPL SerPl-cCnc (07-21-2016 04:05) Lipase 90 U/L 6-51 complet SerPl-c 017 ed Cnc 04:05 Amylase SerPl-cCnc (07-21-2016 04:05) Amylase 81 U/L 30-118 complet 017 ed SerPl-c 04:05 Cnc Hep Func 2000 Pnl SerPl (07-21-2016 04:05) Bilirub 0.9 0.1-1.1 complet 017 mg/dL ed Indirec 04:05 t SerPl-m Cnc Bilirub 0.4 0.0-0.2 complet Conj 017 mg/dL ed SerPl-m 04:05 Cnc Bilirub 1.3 0.3-1.2 complet 017 mg/dL ed SerPl-m 04:05 Cnc ALP 202 U/L 25-100 complet SerPl-c 017 ed Cnc 04:05 AST 24 U/L 0-33 complet SerPl-c 017 ed Cnc 04:05 ALT 24 U/L 7-40 complet SerPl w 017 ed 04:05 P-5'-P- cCnc Albumin 2.70 3.20-4. complet 017 g/dL 80 ed SerPl-m 04:05 Cnc Prot 4.8 5.7-8.2 complet SerPl-m 017 g/dL ed Cnc 04:05 Bas Metab 1999 Pnl SerPl (07-21-2016 04:05) Anion 5.0 3.0-11. complet Gap3 017 mmol/L 0 ed SerPl-s 04:05 Cnc BUN/Cre 21.7 7.0-25. complet at 017 0 ed SerPl 04:05 GFR/BSA 112 >60 complet .pred 017 mL/min/ ed SerPl 04:05 1.73 MDRD-Ar VRat Calcium 8.0 8.7-10. complet 017 mg/dL 4 ed XXX-sCn 04:05 c CO2 28.0 20.0-31 complet SerPl-s 017 mmol/L .0 ed Cnc 04:05 Chlorid 108 99-109 complet e 017 mmol/L ed SerPl-s 04:05 Cnc Potassi 3.4 3.5-5.5 complet um 017 mmol/L ed Bld-sCn 04:05 c Sodium 141 132-146 complet Bld-sCn 017 mmol/L ed c 04:05 Creat 0.60 0.60-1. complet Bld-mCn 017 mg/dL 30 ed c 04:05 BUN 13 9-23 complet Bld-mCn 017 mg/dL ed c 04:05 Glucose 84 70-100 complet 017 mg/dL ed Bld-mCn 04:05 c Phosphate SerPl-mCnc (07-21-2016 04:05) Phospha 2.6 2.4-5.1 complet te 017 mg/dL ed SerPl-m 04:05 Cnc Potassium SerPl-sCnc (07-20-2016 20:50) Potassi 3.6 3.5-5.5 complet um 017 mmol/L ed Bld-sCn 20:50 c Bas Metab 1999 Pnl SerPl (07-20-2016 20:17) Glucose 111 70-130 complet BldC 017 mg/dL ed Glucomt 20:17 r-mCnc Bas Metab 1999 Pnl SerPl (07-20-2016 17:00) Glucose 91 70-130 complet BldC 017 mg/dL ed Glucomt 17:00 r-nc Bas Metab 1999 Pnl SerPl (07-20-2016 11:12) Glucose 91 70-130 complet BldC 017 mg/dL ed Glucomt 11:12 r-nc Bas Metab 2000 Pnl SerPl (07-20-2016 07:55) Glucose 91 70-130 complet BldC 017 mg/dL ed Glucomt 07:55 r-nc Gas Pnl BldA (07-20-2016 05:01) [place] 28 % complet z index 017 ed 05:01 Bld+IhG -Rto CO2 23.4 22-33 complet BldA-sC 017 ed nc 05:01 COHgb 2.2 % 0-2 complet MFr Bld 017 ed 05:01 MetHgb 0.6 % 0-1.5 complet Bld Ql 017 ed 05:01 OxyHgb 93.2 % 94-99 complet MFr 017 ed BldV 05:01 Hct VFr 28.7 % complet Bld 017 ed 05:01 Hgb 9.4 14-18 complet BldA-mC 017 g/dL ed nc 05:01 SaO2 % 93.2 % complet BldCoA 017 ed 05:01 Base -1.8 0.0-2.0 complet excess 017 mmol/L ed BldA 05:01 Calc-sC nc HCO3 22.4 20.0-26 complet BldA-sC 017 mmol/L .0 ed nc 05:01 pO2 76.2 mm 83.0-10 complet BldA 017 Hg 8.0 ed 05:01 pCO2 33.6 mm 35.0-45 complet BldA 017 Hg .0 ed 05:01 pH BldA 7.431 7.350-7 complet 017 pH .450 ed 05:01 units Arteria [id number] complet l 017 09 Not ed patency 05:01 applica Wrist ble SCT a Bdy Arteria complet site 017 l: left ed 05:01 radial CK Pnl SerPl (07-20-2016 03:37) CK 212 U/L 26-174 complet SerPl-c 017 ed Cnc 03:37 CK MB 0.25 0.00-5. complet SerPl-c 017 ng/mL 00 ed Cnc 03:37 BNP SerPl-mCnc (07-20-2016 03:37) BNP 1769.0 0.0-100 complet SerPl-m 017 pg/mL .0 ed Cnc 03:37 CBC W Diff pnl,unspecified Bld (07-20-2016 03:37) Imm 07-20- 0.31 0.00-0. complet Granulo 017 10*3/mm 03 ed cytes # 03:37 3 Bld Basophi 0.08 0.00-0. complet ls # 017 10*3/mm 20 ed Bld 03:37 3 Auto Eosinop 07-20- 0.04 0.10-0. complet hil # 017 10*3/mm 30 ed Bld 03:37 3 Auto Monocyt 07-20-2 1.59 0.00-1. complet es # 017 10*3/mm 00 ed Bld 03:37 3 Auto Lymphoc 07-20-2 2.80 0.60-4. complet ytes # 017 10*3/mm 80 ed Bld 03:37 3 Auto Neutrop 07-20- 17.91 1.50-8. complet hils # 017 10*3/mm 30 ed Bld 03:37 3 Auto Imm 07-20-2 1.4 % 0.0-0.6 complet Granulo 017 ed cytes 03:37 NFr Bld Basophi 07-20-2 0.4 % 0.0-1.0 complet ls NFr 017 ed Bld 03:37 Auto Eosinop 07-20-2 0.2 % 0.0-3.0 complet hil NFr 017 ed Bld 03:37 Auto Monocyt 07-20-2 7.0 % 0.0-12. complet es NFr 017 0 ed Bld 03:37 Auto Lymphoc 07-20-2 12.3 % 24.0-44 complet ytes 017 .0 ed NFr Bld 03:37 Auto Neutrop 78.7 % 41.0-71 complet hils 017 .0 ed NFr Bld 03:37 Auto Platele 83 150-450 complet t # Bld 017 10*3/mm ed Auto 03:37 3 PMV Bld 12.4 fL 6.0-12. complet Auto 017 0 ed 03:37 RDW RBC 53.2 fl 37.0-54 complet Auto 017 .0 ed 03:37 RDW RBC 15.6 % 11.3-14 complet 017 .5 ed Auto-Rt 03:37 o MCHC 33.6 32.0-36 complet RBC 017 g/dL .0 ed Auto-mC 03:37 nc MCH RBC 31.0 pg 27.0-31 complet Qn 017 .0 ed Auto 03:37 MCV RBC 92.4 fL 80.0-99 complet Auto 017 .0 ed 03:37 Hct VFr 26.8 % 34.5-44 complet Bld 017 .0 ed Auto 03:37 Hgb 9.0 11.5-15 complet Bld-mCn 017 g/dL .5 ed c 03:37 RBC # 2.90 3.89-5. complet Bld 017 10*6/mm 14 ed Auto 03:37 3 WBC 22.73 3.50-10 complet nRBC 017 10*3/mm .80 ed cor # 03:37 3 Bld Vancomycin Trough SerPl-mCnc (07-20-2016 03:37) Vancomy 10.60 10.00-2 complet rose mary 017 mcg/mL 0.00 ed Trough 03:37 SerPl-m Cnc Comp Metab 1998 Pnl SerPl (07-20-2016 03:37) Anion 7.0 3.0-11. complet Gap3 017 mmol/L 0 ed SerPl-s 03:37 Cnc BUN/Cre 28.0 7.0-25. complet at 017 0 ed SerPl 03:37 Albumin 1.4 1.5-2.5 complet /Glob 017 g/dL ed SerPl 03:37 Globuli 2.1 complet n Ur 017 gm/dL ed Elph-mC 03:37 nc GFR/BSA 139 >60 complet .pred 017 mL/min/ ed SerPl 03:37 1.73 MDRD-Ar VRat Bilirub 2.0 0.3-1.2 complet 017 mg/dL ed SerPl-m 03:37 Cnc ALP 205 U/L 25-100 complet SerPl-c 017 ed Cnc 03:37 AST 57 U/L 0-33 complet SerPl-c 017 ed Cnc 03:37 ALT 40 U/L 7-40 complet SerPl w 017 ed 03:37 P-5'-P- cCnc Albumin 2.90 3.20-4. complet 017 g/dL 80 ed SerPl-m 03:37 Cnc Prot 5.0 5.7-8.2 complet SerPl-m 017 g/dL ed Cnc 03:37 Calcium 7.8 8.7-10. complet 017 mg/dL 4 ed XXX-sCn 03:37 c CO2 24.0 20.0-31 complet SerPl-s 017 mmol/L .0 ed Cnc 03:37 Chlorid 112 99-109 complet e 017 mmol/L ed SerPl-s 03:37 Cnc Potassi 3.7 3.5-5.5 complet um 017 mmol/L ed Bld-sCn 03:37 c Sodium 143 132-146 complet Bld-sCn 017 mmol/L ed c 03:37 BUN 14 9-23 complet Bld-mCn 017 mg/dL ed c 03:37 Glucose 77 70-100 complet 017 mg/dL ed Bld-mCn 03:37 c Creat 0.50 0.60-1. complet Bld-mCn 017 mg/dL 30 ed c 03:37 Phosphate SerPl-mCnc (07-20-2016 03:37) Phospha 1.3 2.4-5.1 complet te 017 mg/dL ed SerPl-m 03:37 Cnc Mg Ionized SerPl-mCnc (07-20-2016 03:37) Magnesi 2.1 1.3-2.7 complet um 017 mg/dL ed SerPl-m 03:37 Cnc Total Cells Counted Bld (07-20-2016 03:37) Plat [id number] Normal complet morph 017 01 ed Bld 03:37 Normal result SCT WBC [id number] Normal complet morph 017 01 ed Bld 03:37 Normal result SCT RBC [id number] Normal complet morph 017 01 ed Bld 03:37 Normal result SCT Troponin I SerPl-mCnc (07-20-2016 03:37) Troponi 0.892 <=0.040 complet n I 017 ng/mL ed SerPl-m 03:37 Cnc Potassium SerPl-sCnc (07-19-2016 21:36) Potassi 3.9 3.5-5.5 complet um 017 mmol/L ed Bld-sCn 21:36 c Lactate SerPl-sCnc (07-19-2016 21:36) D-Lacta 1.4 0.5-2.0 complet te 017 mmol/L ed SerPl-s 21:36 Cnc Bas Metab 1999 Pnl SerPl (07-19-2016 20:45) Glucose 93 70-130 complet BldC 017 mg/dL ed Glucomt 20:45 r-mCnc Bas Metab 1999 Pnl SerPl (07-19-2016 17:38) Glucose 85 70-130 complet BldC 017 mg/dL ed Glucomt 17:38 r-mCnc Bas Metab 1999 Pnl SerPl (07-19-2016 12:22) Glucose 95 70-130 complet BldC 017 mg/dL ed Glucomt 12:22 r-mCnc Bas Metab 1999 Pnl SerPl (07-19-2016 08:21) Glucose 92 70-130 complet BldC 017 mg/dL ed Glucomt 08:21 r-mCnc ESR Bld Qn (07-19-2016 04:30) ESR Bld 50 0-20 complet Qn 017 mm/hr ed 04:30 Comp Metab 1998 Pnl SerPl (07-19-2016 04:30) Anion 5.0 3.0-11. complet Gap3 017 mmol/L 0 ed SerPl-s 04:30 Cnc BUN/Cre 31.7 7.0-25. complet at 017 0 ed SerPl 04:30 Albumin 1.3 1.5-2.5 complet /Glob 017 g/dL ed SerPl 04:30 Globuli 2.2 complet n Ur 017 gm/dL ed Elph-mC 04:30 nc GFR/BSA 112 >60 complet .pred 017 mL/min/ ed SerPl 04:30 1.73 MDRD-Ar VRat Bilirub 1.3 0.3-1.2 complet 017 mg/dL ed SerPl-m 04:30 Cnc ALP 139 U/L 25-100 complet SerPl-c 017 ed Cnc 04:30 AST 47 U/L 0-33 complet SerPl-c 017 ed Cnc 04:30 ALT 37 U/L 7-40 complet SerPl w 017 ed 04:30 P-5'-P- cCnc Albumin 2.90 3.20-4. complet 017 g/dL 80 ed SerPl-m 04:30 Cnc Calcium 7.9 8.7-10. complet 017 mg/dL 4 ed XXX-sCn 04:30 c CO2 22.0 20.0-31 complet SerPl-s 017 mmol/L .0 ed Cnc 04:30 Chlorid 116 99-109 complet e 017 mmol/L ed SerPl-s 04:30 Cnc Potassi 3.4 3.5-5.5 complet um 017 mmol/L ed Bld-sCn 04:30 c Sodium 143 132-146 complet Bld-sCn 017 mmol/L ed c 04:30 Creat 0.60 0.60-1. complet Bld-mCn 017 mg/dL 30 ed c 04:30 BUN 19 9-23 complet Bld-mCn 017 mg/dL ed c 04:30 Glucose 81 70-100 complet 017 mg/dL ed Bld-mCn 04:30 c Prot 5.1 5.7-8.2 complet SerPl-m 017 g/dL ed Cnc 04:30 LDH SerPl-cCnc (07-19-2016 04:30) LDH 301 U/L 120-246 complet SerPl-c 017 ed Cnc 04:30 Phosphate SerPl-mCnc (07-19-2016 04:30) Phospha 1.5 2.4-5.1 complet te 017 mg/dL ed SerPl-m 04:30 Cnc Mg Ionized SerPl-mCnc (07-19-2016 04:30) Magnesi 2.8 1.3-2.7 complet um 017 mg/dL ed SerPl-m 04:30 Cnc CBC W Diff pnl,unspecified Bld (07-19-2016 04:30) Imm 0.53 0.00-0. complet Granulo 017 10*3/mm 03 ed cytes # 04:30 3 Bld Basophi 0.02 0.00-0. complet ls # 017 10*3/mm 20 ed Bld 04:30 3 Auto Eosinop 0.00 0.10-0. complet hil # 017 10*3/mm 30 ed Bld 04:30 3 Auto Monocyt 0.61 0.00-1. complet es # 017 10*3/mm 00 ed Bld 04:30 3 Auto Lymphoc 1.47 0.60-4. complet ytes # 017 10*3/mm 80 ed Bld 04:30 3 Auto Neutrop 07-19- 21.13 1.50-8. complet hils # 017 10*3/mm 30 ed Bld 04:30 3 Auto Imm 2.2 % 0.0-0.6 complet Granulo 017 ed cytes 04:30 NFr Bld Basophi 0.1 % 0.0-1.0 complet ls NFr 017 ed Bld 04:30 Auto Eosinop 07-19- 0.0 % 0.0-3.0 complet hil NFr 017 ed Bld 04:30 Auto Monocyt 07-19-2 2.6 % 0.0-12. complet es NFr 017 0 ed Bld 04:30 Auto Lymphoc 6.2 % 24.0-44 complet ytes 017 .0 ed NFr Bld 04:30 Auto Neutrop 88.9 % 41.0-71 complet hils 017 .0 ed NFr Bld 04:30 Auto Platele 70 150-450 complet t # Bld 017 10*3/mm ed Auto 04:30 3 PMV Bld 11.3 fL 6.0-12. complet Auto 017 0 ed 04:30 RDW RBC 53.7 fl 37.0-54 complet Auto 017 .0 ed 04:30 RDW RBC 16.1 % 11.3-14 complet 017 .5 ed Auto-Rt 04:30 o MCHC 34.9 32.0-36 complet RBC 017 g/dL .0 ed Auto-mC 04:30 nc MCH RBC 31.8 pg 27.0-31 complet Qn 017 .0 ed Auto 04:30 MCV RBC 90.9 fL 80.0-99 complet Auto 017 .0 ed 04:30 Hct VFr 24.9 % 34.5-44 complet Bld 017 .0 ed Auto 04:30 Hgb 8.7 11.5-15 complet Bld-mCn 017 g/dL .5 ed c 04:30 RBC # 10-2 2.74 3.89-5. complet Bld 017 10*6/mm 14 ed Auto 04:30 3 WBC 07-19- 23.76 3.50-10 complet nRBC 017 10*3/mm .80 ed cor # 04:30 3 Bld Bas Metab 2000 Pnl SerPl (07-18-2016 20:17) Glucose 99 70-130 complet BldC 017 mg/dL ed Glucomt 20:17 r-mCnc D Dimer PPP-aCnc (07-18-2016 19:39) D dimer 10.04 0.00-0. complet FEU 017 mg/L 50 ed PPP-mCn 19:39 (FEU) c PT PPP (07-18-2016 19:39) INR PPP 1.19 complet 017 ed 19:39 PT PPP 13.0 9.6-11. complet 017 Seconds 5 ed 19:39 Fibrinogen PPP-mCnc (07-18-2016 19:39) Fibrino 533 200-400 complet gen 017 mg/dL ed PPP-mCn 19:39 c aPTT PPP (07-18-2016 19:39) aPTT 37.5 24.0-31 complet PPP 017 seconds .0 ed 19:39 FSP PPP (07-18-2016 19:39) FSP PPP 10-40 Less complet 017 mcg/mL than 10 ed LA-aCnc 19:39 mcg/mL Vancomycin Trough SerPl-mCnc (07-18-2016 17:22) Vancomy 11.60 10.00-2 complet rose mary 017 mcg/mL 0.00 ed Trough 17:22 SerPl-m Cnc Bas Metab 2000 Pnl SerPl (07-18-2016 16:01) Glucose 99 70-130 complet BldC 017 mg/dL ed Glucomt 16:01 r-mCnc Bas Metab 2000 Pnl SerPl (07-18-2016 11:19) Glucose 107 70-130 complet BldC 017 mg/dL ed Glucomt 11:19 r-mCnc Bas Metab 2000 Pnl SerPl (07-18-2016 07:59) Glucose 104 70-130 complet BldC 017 mg/dL ed Glucomt 07:59 r-mCnc Diff pnl,unspecified Bld (07-18-2016 03:25) Plat [id number] Normal complet morph 017 01 ed Bld 03:25 Normal result SCT WBC [id number] Normal complet morph 017 01 ed Bld 03:25 Normal result SCT RBC [id number] Normal complet morph 017 01 ed Bld 03:25 Normal result SCT Basophi 0.00 0.00-0. complet ls # 017 10*3/mm 20 ed Bld 03:25 3 Manual Eosinop 0.00 0.10-0. complet hil # 017 10*3/mm 30 ed Bld 03:25 3 Manual Monocyt 0.16 0.00-1. complet es # 017 10*3/mm 00 ed Bld 03:25 3 Auto Lymphoc 1.09 0.60-4. complet ytes # 017 10*3/mm 80 ed Bld 03:25 3 Manual Neutrop 13.59 1.50-8. complet hils # 017 10*3/mm 30 ed Bld 03:25 3 Auto Myelocy 1.0 % 0.0-0.0 complet dev NFr 017 ed Bld 03:25 Manual Metamye 4.0 % 0.0-0.0 complet locytes 017 ed NFr 03:25 Bld Manual Neuts 25.0 % 0.0-5.0 complet Band 017 ed NFr Bld 03:25 Manual Basophi 0.0 % 0.0-1.0 complet ls NFr 017 ed Bld 03:25 Auto Eosinop 0.0 % 0.0-3.0 complet hil NFr 017 ed Bld 03:25 Manual Lymphoc 1.0 % 0.0-12. complet ytes 017 0 ed NFr Bld 03:25 Manual Lymphoc 7.0 % 24.0-44 complet ytes 017 .0 ed NFr Bld 03:25 Manual Neutrop 62.0 % 41.0-71 complet hils 017 .0 ed NFr Bld 03:25 Manual CBC W Diff pnl,unspecified Bld (07-18-2016 03:25) Platele 79 150-450 complet t # Bld 017 10*3/mm ed Auto 03:25 3 PMV Bld 10.2 fL 6.0-12. complet Auto 017 0 ed 03:25 RDW RBC 52.8 fl 37.0-54 complet Auto 017 .0 ed 03:25 RDW RBC 15.9 % 11.3-14 complet 017 .5 ed Auto-Rt 03:25 o MCHC 34.5 32.0-36 complet RBC 017 g/dL .0 ed Auto-mC 03:25 nc MCH RBC 31.4 pg 27.0-31 complet Qn 017 .0 ed Auto 03:25 MCV RBC 90.9 fL 80.0-99 complet Auto 017 .0 ed 03:25 Hct VFr 28.1 % 34.5-44 complet Bld 017 .0 ed Auto 03:25 Hgb 9.7 11.5-15 complet Bld-mCn 017 g/dL .5 ed c 03:25 RBC # 07-18- 3.09 3.89-5. complet Bld 017 10*6/mm 14 ed Auto 03:25 3 WBC 15.62 3.50-10 complet nRBC 017 10*3/mm .80 ed cor # 03:25 3 Bld Comp Metab 1997 Pnl SerPl (07-18-2016 03:25) Anion 12.0 3.0-11. complet Gap3 017 mmol/L 0 ed SerPl-s 03:25 Cnc BUN/Cre 24.4 7.0-25. complet at 017 0 ed SerPl 03:25 Albumin 1.6 1.5-2.5 complet /Glob 017 g/dL ed SerPl 03:25 Globuli 1.9 complet n Ur 017 gm/dL ed Elph-mC 03:25 nc GFR/BSA 70 >60 complet .pred 017 mL/min/ ed SerPl 03:25 1.73 MDRD-Ar VRat Bilirub 0.9 0.3-1.2 complet 017 mg/dL ed SerPl-m 03:25 Cnc ALP 112 U/L 25-100 complet SerPl-c 017 ed Cnc 03:25 AST 93 U/L 0-33 complet SerPl-c 017 ed Cnc 03:25 ALT 01-09-2 50 U/L 7-40 complet SerPl w 017 ed 03:25 P-5'-P- cCnc Albumin 3.00 3.20-4. complet 017 g/dL 80 ed SerPl-m 03:25 Cnc Prot 4.9 5.7-8.2 complet SerPl-m 017 g/dL ed Cnc 03:25 Calcium 7.8 8.7-10. complet 017 mg/dL 4 ed XXX-sCn 03:25 c CO2 18.0 20.0-31 complet SerPl-s 017 mmol/L .0 ed Cnc 03:25 Chlorid 115 99-109 complet e 017 mmol/L ed SerPl-s 03:25 Cnc Potassi 4.3 3.5-5.5 complet um 017 mmol/L ed Bld-sCn 03:25 c Sodium 145 132-146 complet Bld-sCn 017 mmol/L ed c 03:25 Creat 0.90 0.60-1. complet Bld-mCn 017 mg/dL 30 ed c 03:25 BUN 22 9-23 complet Bld-mCn 017 mg/dL ed c 03:25 Glucose 101 70-100 complet 017 mg/dL ed Bld-mCn 03:25 c Troponin I SerPl-mCnc (07-18-2016 03:25) Troponi 4.242 <=0.040 complet n I 017 ng/mL ed SerPl-m 03:25 Cnc Phosphate SerPl-mCnc (07-18-2016 03:25) Phospha 2.9 2.4-5.1 complet te 017 mg/dL ed SerPl-m 03:25 Cnc Mg Ionized SerPl-mCnc (07-18-2016 03:25) Magnesi 3.2 1.3-2.7 complet um 017 mg/dL ed SerPl-m 03:25 Cnc Lactate SerPl-sCnc (07-18-2016 03:24) D-Lacta 3.7 0.5-2.0 complet te 017 mmol/L ed SerPl-s 03:24 Cnc Bas Metab 2000 Pnl SerPl (07-17-2016 20:06) Glucose 113 70-130 complet BldC 017 mg/dL ed Glucomt 20:06 r-mCnc Bas Metab 1999 Pnl SerPl (07-17-2016 19:51) Glucose 104 70-100 complet 017 mg/dL ed Bld-mCn 19:51 c Anion 16.0 3.0-11. complet Gap3 017 mmol/L 0 ed SerPl-s 19:51 Cnc BUN/Cre 20.0 7.0-25. complet at 017 0 ed SerPl 19:51 GFR/BSA 62 >60 complet .pred 017 mL/min/ ed SerPl 19:51 1.73 MDRD-Ar VRat Calcium 7.8 8.7-10. complet 017 mg/dL 4 ed XXX-sCn 19:51 c CO2 11.0 20.0-31 complet SerPl-s 017 mmol/L .0 ed Cnc 19:51 Chlorid 115 99-109 complet e 017 mmol/L ed SerPl-s 19:51 Cnc Potassi 4.7 3.5-5.5 complet um 017 mmol/L ed Bld-sCn 19:51 c Sodium 142 132-146 complet Bld-sCn 017 mmol/L ed c 19:51 Creat 1.00 0.60-1. complet Bld-mCn 017 mg/dL 30 ed c 19:51 BUN 20 9-23 complet Bld-mCn 017 mg/dL ed c 19:51 Lactate SerPl-sCnc (07-17-2016 19:51) D-Lacta 8.0 0.5-2.0 complet te 017 mmol/L ed SerPl-s 19:51 Cnc Troponin I SerPl-mCnc (07-17-2016 19:51) Troponi 4.237 <=0.040 complet n I 017 ng/mL ed SerPl-m 19:51 Cnc Bas Metab 1999 Pnl SerPl (07-17-2016 18:33) Glucose 126 70-130 complet BldC 017 mg/dL ed Glucomt 18:33 r-nc Bas Metab 1999 Pnl SerPl (07-17-2016 16:40) Glucose 107 70-130 complet BldC 017 mg/dL ed Glucomt 16:40 r-mCnc Lactate SerPl-sCnc (07-17-2016 15:35) D-Lacta 10.8 0.5-2.0 complet te 017 mmol/L ed SerPl-s 15:35 Cnc LPL SerPl-cCnc (07-17-2016 14:04) Lipase 20 U/L 6-51 complet SerPl-c 017 ed Cnc 14:04 Amylase SerPl-cCnc (07-17-2016 14:04) Amylase 50 U/L 30-118 complet 017 ed SerPl-c 14:04 Cnc Troponin I SerPl-[facility] (07-17-2016 14:04) Troponi 3.984 <=0.040 complet n I 017 ng/mL ed SerPl-m 14:04 Cnc Bas Metab 1999 Pnl SerPl (07-17-2016 12:12) Glucose 100 70-130 complet BldC 017 mg/dL ed Glucomt 12:12 r-mCnc Bacteria Stl Cult (07-17-2016 05:42) Bacteri No complet a XXX 017 Salmone ed Aerobe 05:42 lla, Cult Shigell a, Campylo bacter, E. coli O157, or Vibrio isolate d Bas Metab 1999 Pnl SerPl (07-17-2016 05:09) Glucose 112 70-130 complet BldC 017 mg/dL ed Glucomt 05:09 r-nc Bas Metab 1999 Pnl SerPl (07-17-2016 02:53) Glucose 120 70-130 complet BldC 017 mg/dL ed Glucomt 02:53 r-mCnc Bacteria Ur Cult (07-17-2016 01:30) Bacteri No complet a XXX 017 growth ed Aerobe 01:30 at 2 Cult days Bacteria Bld Cult (07-17-2016 00:39) Bacteri No complet a XXX 017 growth ed Aerobe 00:39 at 5 Cult days Bas Metab 2000 Pnl SerPl (07-16-2016 23:45) Glucose 96 70-130 complet dC 017 mg/dL ed Glucomt 23:45 r-nc
--- OUTSIDE RECORDS SUMMARY | 2017-05-17 18:57 | External Medical Summary Rpt | CCD ---
Author Author , VENKATA HASTINGS Address Unknown Phone [email or web address] Purpose Continuity of Care Document - 07-16-2016 [...] Cryptoc Ag Ser Ql (08-10-2016 11:01) Cryptoc [id number] Negativ complet Ag CSF 017 09 e ed Ql 11:01 Negativ e SCT Bas Metab 2000 Pnl SerPl (07-27-2016 07:06) Glucose 97 70-130 complet BldC 017 mg/dL ed Glucomt 07:06 r-mCnc Diff pnl,unspecified Bld (07-27-2016 05:23) WBC [id number] Normal complet morph 017 01 ed Bld 05:23 Normal result SCT Plat [id number] Normal complet morph 017 01 ed Bld [...] ed Bld 05:23 3 Manual Polychr 07-27-2 [id number] None complet omasia 017 04 Seen ed [...] complet BldC 017 mg/dL ed Glucomt 21:18 r-[facility] Bas Metab 1999 Pnl SerPl (07-26-2016 16:33) Glucose 115 70-130 complet BldC 017 mg/dL ed Glucomt 16:33 r-[facility] Bas Metab 1999 Pnl SerPl (07-26-2016 11:30) Glucose 100 70-130 complet BldC 017 mg/dL ed Glucomt 11:30 r-[facility] Bas Metab 1999 Pnl SerPl (07-26-2016 07:36) [...] 20 ed Bld 05:20 3 Manual RBC [id number] Normal complet morph 017 01 ed Bld 05:20 Normal result SCT WBC [id number] Normal complet morph 017 01 ed Bld 05:20 Normal result SCT Plat [id number] Normal complet morph 017 01 ed Bld [...] 20 ed Bld 03:50 3 Manual Microcy [id number] None complet dev Bld 017 04 Seen ed Ql 03:50 Small SCT WBC [id number] Normal complet morph 017 01 ed Bld 03:50 Normal result SCT Plat [id number] Normal complet morph 017 01 ed Bld [...] Stl Ql PCR (07-22-2016 10:35) C dif [id number] Negativ complet Tox 017 00 Not e [...] 20 ed Bld 06:03 3 Manual Polychr [id number] None complet omasia 017 04 Seen ed Bld Ql 06:03 Small Smear SCT Plat [id number] Normal complet morph 017 01 ed Bld [...] 04:05 Diff pnl,unspecified Bld (07-21-2016 04:05) Plat [id number] Normal complet morph 017 01 ed Bld 04:05 Normal result SCT WBC [id number] Normal complet morph 017 01 ed Bld 04:05 Normal result SCT RBC [id number] Normal complet morph 017 01 ed Bld [...] 017 pH .450 ed 05:01 units Arteria [id number] complet l 017 09 Not ed patency [...] Total Cells Counted Bld (07-20-2016 03:37) Plat [id number] Normal complet morph 017 01 ed Bld 03:37 Normal result SCT WBC [id number] Normal complet morph 017 01 ed Bld 03:37 Normal result SCT RBC [id number] Normal complet morph 017 01 ed Bld [...] r-mCnc Diff pnl,unspecified Bld (07-18-2016 03:25) Plat [id number] Normal complet morph 017 01 ed Bld 03:25 Normal result SCT WBC [id number] Normal complet morph 017 01 ed Bld 03:25 Normal result SCT RBC [id number] Normal complet morph 017 01 ed Bld [...] 017 ed SerPl-c 14:04 Cnc Troponin I SerPl-[facility] (07-17-2016 14:04) Troponi 3.984 <=0.040 complet n [...]
--- OUTSIDE RECORDS SUMMARY | 2017-05-17 18:58 | External Medical Summary Rpt | CCD ---
Author Author [employer] Organization [employer] Address Unknown Phone Unavailable Purpose Continuity of Care Document - through 2016
--- OUTSIDE RECORDS SUMMARY | 2017-05-17 18:58 | External Medical Summary Rpt | CCD ---
Author Author , VENKATA HASTINGS Address Unknown Phone [email or web address] Immunization Name Date Rout CVX Reac Dose Comm Prov Is Faci e tion ent ider Refu lity Give sed n Infl 12-0 Intr 141 0.5 Hist WALM No WALM uenz 2-20 amus mL oric ART4 ART4 a, 15 cula al 93 93 Seas r Info onal rmat ion - Sour ce Unsp ecif ied
--- OUTSIDE RECORDS SUMMARY | 2017-05-17 18:58 | External Medical Summary Rpt | CCD ---
Author Author , VENKATA HASTINGS Address Unknown Phone Immunization Name Date Rout CVX Reac Dose Comm Prov Is Faci e tion ent ider Refu lity Give sed n Infl 12-0 Intr 141 0.5 Hist [facility] No WALM uenz 2-20 amus mL oric ART4 ART4 a, 15 cula al 93 93 Seas r Info onal rmat ion - Sour ce Unsp ecif ied
--- OUTSIDE RECORDS SUMMARY | 2017-05-17 18:59 | External Medical Summary Rpt ---
Author Author VENKATA Casey, VENKATA Casey Organization [employer] Address Unknown Phone Unavailable
[2017-05-17 19:19] LABS: FREE THYROXIN INDEX 6.8 ug/dl (5.93-13.13)
[2017-05-17 19:56] LABS: URINE BILIRUBIN - DIPSTICK NEGATIVE (NEG); URINE BLOOD NEGATIVE (NEG)
[2017-05-17] MEDS ORDERED: CIPRO 500MG TA500 MG PO (20:05)
[2017-05-17 20:43] VITALS: BP 127/65
--- NOTE | 2017-05-20 07:18 | RADIOLOGY REPORT PS360 ---
CT ABD PELVIS W/O CONTRAST CLINICAL INDICATION: Right upper quadrant pain with nausea RUQ PAIN ORDERING PHYSICIAN: Emery Cortes MD PATIENT AGE: 37 years COMPARISON: 10/15/2016 TECHNIQUE: Axial images obtained with sagittal and coronal reformats. PROCEDURE: Oral Contrast: None IV Contrast: None . FINDINGS: Lung bases are clear. The liver, spleen, adrenal glands, pancreas, gallbladder, kidneys, ureters, and urinary bladder have an unremarkable appearance. Unremarkable appendix. No evidence of intestinal obstruction, free air, or diverticulitis. Scattered diverticula are present within the descending colon. There are few small retroperitoneal lymph nodes No pelvic mass or abnormal fluid collection. There is a small left inguinal hernia containing fat. No acute bony anomalies. IMPRESSION: 1. No acute intra-abdominal or pelvic pathology. 2. Diverticulosis of the descending colon 3. Small left inguinal hernia containing fat
== END 2017-05-17 20:44 | disposition home or self-care (01) ==
LOC: ER 18:29
PROVIDERS: Emergency Medicine
DX: R10.11 Right upper quadrant pain (principal); N39.0 Urinary tract infection, site not specified; F17.210 Nicotine dependence, cigarettes, uncomplicated; I10 Essential (primary) hypertension; Z88.0 Allergy status to penicillin
CPT/HCPCS: J2405